=== PATIENT | male | born 1970 | race Caucasian/White ===

== ENCOUNTER 2021-06-07 02:17 | Inpatient (IN) ==
[2021-06-07] MEDS ORDERED: DEXTROSE 50% 25 GM/50 ML VIAL IV STA ×2 (02:31→04:52)
[2021-06-07] MEDS ORDERED: DEXTROSE 50% 25 GM/50 ML SYRINGE IV STA ×2 (02:34→04:54)
[2021-06-07 03:27] LABS: Basophils % 0.2 % (0.0-0.8); Eosinophils # 0.1 10*3/uL (0.0-0.87); Eosinophils % 0.5 % (0.00-10.9); Hematocrit 30.6 VOL% (42.0-52.0); Hemoglobin 10.2 GM/DL (14.0-18.0); Immature Granulocytes % 0.6 %; Lymphocytes # 0.7 10*3/uL (1.4-4.0); Lymphocytes % 4.5 % (21.2-54.2); Mean Corpuscular HGB Conc 33.3 GM/DL (32-36); Mean Corpuscular Volume 83.4 FL (87-102); Mean Platelet Volume 10.8 FL (9.6-12.0); Neutrophils % 86.2 % (38.7-73.9); Platelet Count 259 T/CUMM (130-400); Red Blood Count 3.67 MC/CUMM (3.8-5.5); Red Cell Distribution Width 13.2 % (9.3-17.3); White Blood Count 15.7 T/CUMM (4-12)
[2021-06-07 04:05] LABS: Alanine Aminotransferase 17 U/L (16-61); Albumin 3.3 G/DL (3.4-5.0); Alkaline Phosphatase 151 U/L (45-117); Aspartate Amino Transferase 36 U/L (0-37); Bilirubin,Total < 0.39 MG/DL (0.20-1.00); Blood Urea Nitrogen 72 MG/DL (7-18); Calcium 8.1 MG/DL (8.5-10.1); Carbon Dioxide 24 MMOL/L (21-32); Estimated Glom Filtration Rate 14 ML/MIN; Glucose 67 MG/DL (74-106); Sodium 136 MMOL/L (136-145); Total Protein 7.2 G/DL (6.4-8.2)
[2021-06-07 04:27] LABS: Eosinophils 1 % (0-10); Lymphocytes 5 % (20-55); Platelet Estimate Normal; Segmented Neutrophils 89 % (50-85); Total Cells Counted 100
[2021-06-07 04:29] LABS: Microcytosis 1+
[2021-06-07 04:31] LABS: Ovalocytes Slight
[2021-06-07] MEDS ORDERED: SODIUM CHLORIDE 0.9% 1,000 ML IV STA (04:33)
[2021-06-07] MEDS ORDERED: ENOXAPARIN 30 MG/0.3 ML SYRINGE SUBCUT STA (04:44)
[2021-06-07] MEDS ORDERED: ASPIRIN EC 325 MG TABLET PO STA (04:44)
[2021-06-07] MEDS ORDERED: ENOXAPARIN 100 MG/ML SYRINGE SUBCUT STA (05:04)
[2021-06-07] MEDS ORDERED: GLUCAGON 1 MG VIAL IM PRN ×2 (05:16→10:55)
[2021-06-07] MEDS ORDERED: MORPHINE 2 MG/1 ML SYRINGE IV STA (05:16)
[2021-06-07] MEDS ORDERED: ACETAMINOPHEN 325 MG TABLET PO PRN (05:16)
[2021-06-07] MEDS ORDERED: DEXTROSE 5% NACL 0.45% 1,000 ML IV SCH (05:30)
[2021-06-07] MEDS ORDERED: DEXTROSE 50% 25 GM/50 ML SYRINGE IV PRN (05:32)
[2021-06-07] MEDS ORDERED: MORPHINE 2 MG/1 ML SYRINGE IV PRN (05:52)
[2021-06-07 08:30] LABS: VLDL Cholesterol 19.6 MG/DL
[2021-06-07] MEDS ORDERED: PANTOPRAZOLE 40 MG TABLET PO SCH (09:00)
[2021-06-07] MEDS ORDERED: SODIUM CHLORIDE 0.9% 1,000 ML IV ONE ×2 (10:53→23:00)
[2021-06-07] MEDS ORDERED: DEXTROSE 10% 25 GM/250 ML BAG IV PRN (11:08)
[2021-06-07] MEDS: ONDANSETRON 4 MG/2 ML VIAL IV PRN ×3 (11:21→19:28)
[2021-06-07 12:12] LABS: High Sensitive Troponin I* 7367.1 ng/L (0-78)
[2021-06-07] MEDS: SODIUM CHLORIDE 0.9% 1,000 ML IV SCH ×2 (12:35→22:20)
[2021-06-07] MEDS ORDERED: METOPROLOL TARTRATE 25 MG TABLET PO STA (13:48)
[2021-06-07] MEDS: PROMETHAZINE 25 MG/1 ML VIAL IM PRN ×2 (15:02→21:17)
[2021-06-07 16:35] LABS: Bacteria,Urine Occasional /HPF (Few); Bilirubin,Urine Negative (Negative); Blood, Urine Moderate mg/dL (Negative); Glucose,Urine (UA) 50 mg/dL (Negative); Ketones,Urine Negative (Negative); Nitrite,Urine Negative (Negative); Protein,Urine 100 MG/DL; RBC,Urine 3 /HPF (0-4); Urine Appearance CLEAR (Clear); Urine Color Yellow (Yellow); Urine Urobilinogen < 2.0 EU/DL (<2.0)
[2021-06-07 16:43] LABS: CKMB % 4.5 %
[2021-06-07] MEDS ORDERED: METOPROLOL TARTRATE 25 MG TABLET PO SCH (21:00)
[2021-06-07] MEDS ORDERED: ATORVASTATIN 40 MG TABLET PO SCH (21:00)
[2021-06-07] MEDS ORDERED: SODIUM CHLORIDE 0.9% 500 ML IV ONE (23:32)
[2021-06-08] MEDS ORDERED: DOPamine 800 MG/250 ML PREMIX IV PRN (00:18)
[2021-06-08] MEDS ORDERED: DOPamine 800 MG/250 ML PREMIX IV ONE (00:24)
[2021-06-08] MEDS ORDERED: MIDAZOLAM 2 MG/2 ML VIAL ONE (00:29)
[2021-06-08] MEDS ORDERED: MIDAZOLAM 2 MG/2 ML VIAL IV ONE (00:32)
[2021-06-08] MEDS ORDERED: ATROPINE 1 MG/10 ML SYRINGE ONE (00:33)
[2021-06-08 00:51] LABS: ABG HCO3 7.4 MMOL/L (20-26); ABG Oxygen Saturation 79.3 % (95-100); ABG PCO2 29.6 MM HG (35-48); ABG PO2 70.6 MM HG (80-95); ABG TCO2 7.1 MMOL/L (23-27)
[2021-06-08] MEDS ORDERED: MIDAZOLAM 100 MG in SODIUM CHLORIDE 0.9% 80 ML IV PRN (01:00)
[2021-06-08] MEDS ORDERED: SODIUM BICARBONATE PEDIATRIC 5 MEQ/10 ML SYRINGE ONE (01:03)
[2021-06-08] MEDS ORDERED: SODIUM BICARBONATE 50 MEQ/50 ML SYRINGE IV ONE ×2 (01:05→02:51)
[2021-06-08] MEDS ORDERED: SODIUM BICARBONATE 50 MEQ/50 ML VIAL IV ONE (01:05)
[2021-06-08] MEDS ORDERED: EPINEPHrine 1 MG/10 ML SYRINGE ONE ×3 (01:06→02:51)
[2021-06-08] MEDS ORDERED: CALCIUM CHLORIDE 1,000 MG/10 ML SYRINGE IV ONE (02:51)
[2021-06-08 04:52] LABS: Immature Granulocytes % 1.1 %; Immature Granulocytes Absolute 0.06 #; Lymphocytes # 1.2 10*3/uL (1.4-4.0); Lymphocytes % 21.1 % (21.2-54.2); Mean Corpuscular Volume 90.9 FL (87-102); Mean Platelet Volume 13.1 FL (9.6-12.0); Monocytes % 6.6 % (1.7-12.7); Neutrophils % 71.2 % (38.7-73.9); Platelet Count 183 T/CUMM (130-400); Red Cell Distribution Width 13.6 % (9.3-17.3); White Blood Count 5.5 T/CUMM (4-12)
[2021-06-08 04:55] LABS: Hemoglobin 6.2 GM/DL (14.0-18.0)
[2021-06-08 05:04] VITALS: BP 48/32
[2021-06-08] MEDS ORDERED: ONDANSETRON ODT 4 MG TABLET PO ONE (05:17)
[2021-06-08] MEDS ORDERED: ENOXAPARIN 100 MG/ML SYRINGE SUBCUT SCH (05:30)
[2021-06-08] MEDS ORDERED: ENOXAPARIN 30 MG/0.3 ML SYRINGE SUBCUT SCH (05:30)
[2021-06-08] MEDS ORDERED: ASPIRIN EC 81 MG TABLET PO SCH (09:00)
[2021-06-08] MEDS ORDERED: ceFAZolin 2,000 MG/50 ML DUPLEX IV ONE (15:12)
[2021-06-09] MEDS ORDERED: EPINEPHrine 1 MG/10 ML SYRINGE IV ONE (07:55)
[2021-06-09] MEDS ORDERED: SODIUM BICARBONATE 50 MEQ/50 ML SYRINGE IV ONE (07:55)
[2021-06-09] MEDS ORDERED: CALCIUM CHLORIDE 1,000 MG/10 ML SYRINGE IV ONE (07:55)
== END 2021-06-08 01:21 | disposition expired ==
LOC: N.ED 02:17 → N.EDINP 05:16 → SUATTDRO 05:16 → N.EDINP 06-08 01:21
PROVIDERS: ADMIT Internal Medicine; ATTEND Hospitalist